=== PATIENT | male | born 1985 | race Hispanic/Latino ===

== ENCOUNTER 2019-11-11 01:35 | Emergency (ER) | payer SELFPAY ==
[~2019-11-11] VITALS: Ht 167.6 cm; Wt 83.9 kg
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
[2019-11-11] MEDS ORDERED: FAMOTIDINE 20 MG/2 ML VIAL IV STA (02:15)
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
== END 2019-11-11 03:20 | disposition home or self-care (01) ==
LOC: ER 02:03
DX: R07.89 Other chest pain (principal); V43.52XA Car driver injured in collision with other type car in traffic accident, initial encounter; Y92.488 Other paved roadways as the place of occurrence of the external cause; F17.210 Nicotine dependence, cigarettes, uncomplicated
CPT/HCPCS: 71046; 99283

== ENCOUNTER 2024-11-14 06:52 | Emergency (ER) | payer SELFPAY ==
[~2024-11-14] VITALS: Ht 167.6 cm; Wt 83.9 kg
[2024-11-14 07:02] VITALS: PULSE 80; RESP 17; TEMP 98.4; O2SAT 98
[2024-11-14] MEDS: TETANUS/DIPHTHERIA TOX ADULT 0.5 ML SYR IM ONE (07:12)
== END 2024-11-14 09:23 | disposition home or self-care (01) ==
LOC: ER 06:56
DX: S60.221A Contusion of right hand, initial encounter (principal); F10.129 Alcohol abuse with intoxication, unspecified; W23.1XXA Caught, crushed, jammed, or pinched between stationary objects, initial encounter; Y92.89 Other specified places as the place of occurrence of the external cause; F17.210 Nicotine dependence, cigarettes, uncomplicated
CPT/HCPCS: 90714; 99282